=== PATIENT | female | born 2000 | race Caucasian/White ===

== ENCOUNTER 2019-03-31 08:26 | Emergency (ER) | payer BC ==
[2019-03-31] MEDS ORDERED: Ondansetron ODT 4 MG TAB ONE (08:45)
[2019-03-31] MEDS ORDERED: Ondansetron PF 4 MG/2 ML Vial ONE (09:08)
[2019-03-31 09:59] LABS: Bilirubin Negative (Negative); Blood, Urine Trace (Negative); Clarity Slightly Cloudy (Clear); Glucose, Urine (Dipstick) Negative (Negative); Leukocyte Negative (Negative); Nitrite Negative (Negative); Protein, Urine (Dipstick) 100 mg/dL (Neg-Trace); Urobilinogen 0.2 mg/dL (Less than 2)
[2019-03-31 10:01] LABS: Pregnancy Test - Urine (BHCG) Negative (Negative); Pregu Control Background? CLEAR/WHITE (CLR/WHITE); Pregu Control Bar Appear? YES (CONTROL BAR); Specific Gravity 1.025 (1.002-1.036)
[2019-03-31 10:05] LABS: Bacteria/HPF None Seen HPF (None Seen); RBC/HPF 0-3 HPF (0-3); Squamous Epithelial 0-3 HPF (0-3); WBC/HPF 0-3 HPF (0-3)
[2019-03-31] MEDS ORDERED: Famotidine/PF 20 mg/2ml Vial ONE (10:25)
== END 2019-03-31 12:20 | disposition home or self-care (01) ==
LOC: SCSER 08:26
DX: E86.0 Dehydration (principal); R11.2 Nausea with vomiting, unspecified; R19.7 Diarrhea, unspecified
CPT/HCPCS: 81003; 81015; 81025; 96361; 96374; 96375; J2405; Q0162; S0028